=== PATIENT | male | born 1945 | race Caucasian/White ===

== ENCOUNTER → 2017-08-19 | Outpatient (CLI) | payer MEDICARE, BC ==
[~2017-08-19] MED LIST: ALBU1AER INH; AMLO5TAB22 PO; ASPI81 PO; GLIP5 PO; LISI-360 PO; METF500 PO; PLAV75TA PO; PROT40TA PO; ULTR50TA PO
--- NOTE | 2017-08-22 11:42 | RSPPFT ---
DATE OF PROCEDURE: 08/19/17 COMMENTS: Spirometry with FVC of 3.7 predicted 3.3, FEV1 of 2.9 predicted 2.6, FEV1/FVC ratio 79% predicted 78%. Lung volumes and DLCO are within the predicted. IMPRESSION:
== END ==
LOC: PHRSP 09:43
PROVIDERS: ATTEND Family Medicine
DX: R05 Cough (principal)
CPT/HCPCS: 94060; 94726; 94729